=== PATIENT | male | born 1990 | race Caucasian/White ===

== ENCOUNTER 2016-11-16 15:53 | Emergency (ER) | payer OTHER ==
[~2016-11-16] VITALS: Ht 182.9 cm; Wt 129.3 kg
[2016-11-16 16:08] VITALS: BP 144/96
[2016-11-16 17:35] VITALS: BP 143/74
== END 2016-11-16 17:35 | disposition home or self-care (01) ==
LOC: MED 15:53
DX: S93.691A Other sprain of right foot, initial encounter (principal); X58.XXXA Exposure to other specified factors, initial encounter; Y93.89 Activity, other specified; Y92.89 Other specified places as the place of occurrence of the external cause; Y99.8 Other external cause status
CPT/HCPCS: 73630; 99284; Q0092